=== PATIENT | male | born 1990 | race Caucasian/White ===

== ENCOUNTER 2017-02-04 18:23 | Emergency (ER) | payer OTHER ==
[2017-02-04 18:53] VITALS: BP 135/74; PULSE 73; RESP 18; TEMP 98.2
[2017-02-04] MEDS ORDERED: CIPROFLOXACIN 0.3% OPHTH SOLN 2.5 ML BTL BOTH EYES STA (19:04)
[2017-02-04] MEDS ORDERED: CLINDAMYCIN 150 MG/ML 4 ML VIAL IM STA ×2 (19:04→19:21)
--- NOTE | 2017-02-04 19:30 | ED ---
Eye Problem HPI - General Chief complaint: Eye Problems Stated complaint: rt eye problem Time Seen by Provider: 02/04/17 18:54 Source: patient, RN notes reviewed Mode of arrival: ambulatory Limitations: no limitations - History of Present Illness Initial comments: 26-year-old male presents emergency Department chief complaint of 2 days of right thigh pain. Patient reports that he initially noticed he had some swelling and irritation of the eye itself. He reports he woke up with a crusting and draining. Patient states he went to the [facility] breath and a centimeter concerning for preseptal cellulitis. Patient was given no antibiotics at that time. Patient denies any fevers or chills. Denies any pain with extraocular eye movements. Patient states that he has no ALLERGIES to antibiotics. Denies any difficulty with vision. - Related Data Home Medications Medication Instructions Recorded Confirmed FLUoxetine HCL [PROzac] 40 mg PO DAILY 10/23/14 10/23/14 Ibuprofen [Motrin] 600 mg PO Q8HR PRN 10/23/14 10/23/14 Previous Rx's Medication Instructions Recorded HYDROcodone/APAP 5-325MG [[place] 5] 1 each PO Q6HR PRN #2 tab 10/23/14 Ciprofloxacin Ophth Soln [Ciloxan 1 drops BOTH EYES Q4HR #1 bottle 02/04/17 0.3% Ophth Soln] Clindamycin [Cleocin] 300 mg PO TID 10 Days 02/04/17 Allergies Allergy/AdvReac Type Severity Reaction Status Date / Time divalproex sodium Allergy Unknown Verified 10/23/14 11:02 [From [facility]] Review of Systems ROS Statement: Those systems with pertinent positive or pertinent negative responses have been documented in the HPI. ROS Other: All systems not noted in ROS Statement are negative. Past Medical History Past Medical History: No Reported History History of Any Multi-Drug Resistant Organisms: None Reported Past Surgical History: No Surgical Hx Reported Past Psychological History: ADD/ADHD, Anxiety, Bipolar, Depression, PTSD Smoking Status: Current every day smoker Past Alcohol Use History: None Reported Past Drug Use History: None Reported General Exam - General Exam Comments Initial Comments: 26-year-old male. No acute distress. Limitations: no limitations General appearance: alert, in no apparent distress Head exam: Present: atraumatic, normocephalic, normal inspection Eye exam: Present: normal appearance, PERRL, EOMI, conjunctival injection ( right eye conjunctival injection), periorbital tenderness (right eye periorbital tenderness), other. Absent: scleral icterus, periorbital swelling ENT exam: Present: normal exam Neck exam: Present: normal inspection. Absent: tenderness, meningismus, lymphadenopathy Respiratory exam: Present: normal lung sounds bilaterally. Absent: respiratory distress, wheezes, rales, rhonchi, stridor Cardiovascular Exam: Present: regular rate, normal rhythm, normal heart sounds. Absent: systolic murmur, diastolic murmur, rubs, gallop, clicks GI/Abdominal exam: Present: soft, normal bowel sounds. Absent: distended, tenderness, guarding, rebound, rigid Extremities exam: Present: normal inspection, full ROM, normal capillary refill. Absent: tenderness, pedal edema, joint swelling, calf tenderness Back exam: Present: normal inspection Neurological exam: Present: alert, oriented X3, CN II-XII intact Psychiatric exam: Present: normal affect, normal mood Skin exam: Present: warm, dry, intact, normal color. Absent: rash Course Vital Signs 02/04/17 18:51 Temperature 98.2 F Pulse Rate 73 Respiratory 18 Rate Blood Pressure 135/74 O2 Sat by Pulse 98 Oximetry Medical Decision Making - Medical Decision Making 6-year-old male chief complaint of right eye pain and swelling for the past 2 days. Patient reports to use any form expressed concern for preseptal cellulitis. He does have some erythema and swelling underneath and around the right eye. No pain with extraocular eye movements. Patient's given IM clindamycin. Started on ciprofloxacin drops. Discussed the need take the medication as prescribed. Discussed taking Motrin Tylenol. Discussed that he needs return to emergency department if any worsening signs or symptoms occur. Patient understands treatment plan will comply. Disposition Clinical Impression: Periorbital cellulitis of right eye, Conjunctivitis, right eye Disposition: HOME SELF-CARE Condition: Good Instructions: Conjunctivitis (ED), Periorbital Cellulitis in Adults (ED) Additional Instructions: Is advised to take the antibiotics as directed. Do not miss a dose. Return to the emergency department if any alarming signs or symptoms occur. Prescriptions: Ciprofloxacin Ophth Soln [Ciloxan 0.3% Ophth Soln] 1 drops BOTH EYES Q4HR #1 bottle Clindamycin [Cleocin] 300 mg PO TID 10 Days Referrals: Jessica Jones MD [Primary Care Provider] - 1-2 days Time of Disposition: 19:27
== END 2017-02-04 19:50 | disposition home or self-care (01) ==
LOC: EC 18:23
DX: L03.213 Periorbital cellulitis (principal); H10.9 Unspecified conjunctivitis; F41.9 Anxiety disorder, unspecified; F43.10 Post-traumatic stress disorder, unspecified; F32.9 Major depressive disorder, single episode, unspecified; F17.200 Nicotine dependence, unspecified, uncomplicated; Z88.8 Allergy status to other drugs, medicaments and biological substances; Z79.899 Other long term (current) drug therapy
CPT/HCPCS: 96372; 99283

== ENCOUNTER 2018-07-20 14:39 | Emergency (ER) | payer OTHER ==
[2018-07-20 15:09] VITALS: RESP 18; TEMP 98.3
[2018-07-20] MEDS ORDERED: KETOROLAC 60 MG/2 ML VIAL IM STA (16:40)
--- NOTE | 2018-07-20 17:22 | CT ---
EXAMINATION TYPE: CT thor lumbar spine wo con DATE OF EXAM: 07/20/2018 COMPARISON: None HISTORY: Fall from porch, landing on mid back, more on left side. CT DLP: 1465.4 mGycm Automated exposure control for dose reduction was used. FINDINGS: Thoracic and lumbar vertebra have normal spacing and alignment. There is no evidence of a compression fracture. There is nondisplaced fracture left transverse process of L2. There is no thoracic or lumb ar paraspinal mass. There is no evidence of spinal stenosis. I see no focal bone destruction. Sacroil iac joints appear normal. IMPRESSION: NONDISPLACED FRACTURE LEFT TRANSVERSE PROCESS OF L2. NO EVIDENCE OF A COMPRESSION FRACTURE OF THE THO RACIC AND LUMBAR SPINE.
--- NOTE | 2018-07-20 17:37 | ED ---
Back Pain HPI - General Chief Complaint: Back Pain/Injury Stated Complaint: fall on ice, back pain Time Seen by Provider: 07/20/18 16:17 Source: patient Limitations: no limitations - History of Present Illness Initial Comments: 27-year-old female who denies past medical history presenting today for chief complaint of left-sided back pain. Patient states that he fell just prior to arrival. He states he went home to feed his cats when he slipped on ice and the porch falling onto left aspect of his back. Patient amidst too low back pain. Patient denies any injury to the chest, dyspnea, dyspnea on exertion. Patient states it is tender to palpation of the left side of the back. Patient denies abdominal pain, nausea, vomiting. Patient denies any head or neck injury. He denies any loss of consciousness. Patient denies any dizziness, headache, chest pain or palpitations prior to falling. He states he did fall because the ice. Patient denies any loss of bowel bladder control, urinary retention, loss sensation lower extremities, lower extremity muscle weakness, difficulty in breathing, denies any radiation of the pain to the lower extremities. He states pain is localized to the left side of the lumbar spine. Remaining review of systems negative, Patient denies any recent fever, chills , shortness of breath, chest pain, numbness or tingling, dysuria or hematuria, constipation or diarrhea, headaches or visual changes, or any other complaints. - Related Data Home Medications Medication Instructions Recorded Confirmed FLUoxetine HCL [PROzac] 40 mg PO DAILY 10/23/14 10/23/14 Ibuprofen [Motrin] 600 mg PO Q8HR PRN 10/23/14 10/23/14 Previous Rx's Medication Instructions Recorded HYDROcodone/APAP 5-325MG [[place] 5] 1 each PO Q6HR PRN #2 tab 10/23/14 Ciprofloxacin Ophth Soln [Ciloxan 1 drops BOTH EYES Q4HR #1 bottle 02/04/17 0.3% Ophth Soln] Clindamycin [Cleocin] 300 mg PO TID 10 Days capsule 02/04/17 Acetaminophen with Codeine 1 tab PO Q6H PRN 3 Days #12 tab 07/20/18 [Tylenol w/codeine #3] Allergies Allergy/AdvReac Type Severity Reaction Status Date / Time divalproex sodium Allergy Unknown Verified 07/20/18 15:04 [From Depakote] Review of Systems ROS Statement: Those systems with pertinent positive or pertinent negative responses have been documented in the HPI. ROS Other: All systems not noted in ROS Statement are negative. Past Medical History Past Medical History: No Reported History History of Any Multi-Drug Resistant Organisms: None Reported Past Surgical History: No Surgical Hx Reported Past Psychological History: ADD/ADHD, Anxiety, Bipolar, Depression, PTSD Smoking Status: Current every day smoker Past Alcohol Use History: None Reported Past Drug Use History: Marijuana General Exam - General Exam Comments Initial Comments: General: The patient is awake and alert, in no distress, and does not appear acutely ill. Eye: +3 mm pupils are equal, round and reactive to light, extra-ocular movements are intact. No nystagmus. There is normal conjunctiva bilaterally. No signs of icterus. Ears, nose, mouth and throat: There are moist mucous membranes and no oral lesions. Neck: The neck is supple, there is no tenderness or JVD. Cardiovascular: There is a regular rate and rhythm. No murmur, rub or gallop is appreciated. Respiratory: Lungs are clear to auscultation, respirations are non-labored, breath sounds are equal. No wheezes, stridor, rales, or rhonchi. Present in the lung peng, no guarding. No tenderness to patient of the ribs. Gastrointestinal: Soft, non-distended, non-tender abdomen without masses or organomegaly noted. There is no rebound or guarding present. No CVA tenderness. Bowel sounds are unremarkable. Musculoskeletal: Upon inspection of the lumbar spine there is ecchymosis paravertebral to the mid lumbar spine. There is midline and paravertebral tenderness to palpation of the lumbar spine. Normal ROM, no tenderness of the lower extremities. Negative straight leg raise bilaterally Strength 5/5 of the lower extremity is equal bilaterally. Sensation intact of the lower extremities equally bilaterally including the saddle region. DP pulses equal bilaterally 2+. Neurological: A&O x 3. CN II-XII intact, There are no obvious motor or sensory deficits. Coordination appears grossly intact. Speech is normal. Skin: Skin is warm and dry and no rashes or lesions are noted. Psychiatric: Cooperative, appropriate mood & affect, normal judgment. Limitations: no limitations Course Vital Signs 07/20/18 07/20/18 15:06 18:19 Temperature 98.3 F Pulse Rate 114 H 99 Respiratory 18 18 Rate Blood Pressure 142/93 126/78 O2 Sat by Pulse 99 99 Oximetry Medical Decision Making - Medical Decision Making 27-year-old male presented for follow-up. Given the extent of ecchymosis of the paravertebral tissue concern for possible fracture, CT obtained revealing a transverse process fracture of L2. No evidence of spinal cord compression, there is no radicular symptoms on examination or patient complaints. Patient neurovascularly intact. Patient has no complaints of abdominal pain. Patient given medication for pain. This time do feel patient is stable for discharge with outpatient orthopedic surgery follow-up. Patient is agreeable plan discharge denies question at this time. Patient appears comfortable, he states he is shocked there was a fracture. Administration of Tylenol 3 as well as risks involved tissues were discussed at length with patient who verbalized understanding. Patient discharged appearing well, i did discuss case with attending provider Dr. Monsalve prior to pt discharge. Disposition Clinical Impression: L2 vertebral fracture Narrative: L2 transverse process fracture Disposition: HOME SELF-CARE Condition: Good Instructions (If sedation given, give patient instructions): Acute Low Back Pain (ED), Back Pain (ED) Additional Instructions: Please use medication as discussed. Please follow-up with family doctor in the next 2 days. Please follow-up with orthopedic surgery in next week. Please return to emergency room if the symptoms increase or worsen or for any other concerns. Prescriptions: Acetaminophen with Codeine [Tylenol w/codeine #3] 1 tab PO Q6H PRN 3 Days #12 tab PRN Reason: Severe Pain Is patient prescribed a controlled substance at d/c from ED?: Yes When asked, does pt state using other controlled substances?: No If prescribed controlled substance>3 days was MAPS reviewed?: Prescribed <3 Days If opioid is for acute pain is fill amount 7 days or less?: Yes If Rx opioid, was Start Talking consent form obtained?: Yes Referrals: None,Stated [Primary Care Provider] - 1-2 days [facility] [NON[facility]] - 1-2 days Arsenio Shaw DO [Doctor of Osteopathic Medicine] - 1-2 days Time of Disposition: 17:36
[2018-07-20] MEDS ORDERED: ACET/COD 300 MG/30 MG STARTER PACK 6 TAB BTL PO STA (18:15)
[2018-07-20 18:20] VITALS: BP 126/78; PULSE 99
== END 2018-07-20 18:20 | disposition home or self-care (01) ==
LOC: EC 14:39
DX: S32.029A Unspecified fracture of second lumbar vertebra, initial encounter for closed fracture (principal); F32.9 Major depressive disorder, single episode, unspecified; F43.10 Post-traumatic stress disorder, unspecified; F41.9 Anxiety disorder, unspecified; F17.200 Nicotine dependence, unspecified, uncomplicated; Z79.899 Other long term (current) drug therapy; Z88.8 Allergy status to other drugs, medicaments and biological substances; W00.0XXA Fall on same level due to ice and snow, initial encounter
CPT/HCPCS: 72128; 72131; 99283; 96372; J1885

== ENCOUNTER 2019-03-09 18:42 | Emergency (ER) | payer OTHER ==
[2019-03-09 19:42] VITALS: RESP 18; TEMP 98.2
[2019-03-09 21:17] VITALS: BP 137/73; PULSE 73
[2019-03-09] MEDS ORDERED: ONDANSETRON 4 MG/2 ML VIAL IVP STA (21:28)
[2019-03-09] MEDS ORDERED: SODIUM CHLORIDE 0.9% 2,000 ML IV STA (21:28)
[2019-03-09] MEDS ORDERED: ONDANSETRON 4 MG ODT STARTER PACK 2 TAB BTL PO STA (21:40)
[2019-03-09] MEDS ORDERED: AZITHROMYCIN 500 MG TAB PO STA (21:40)
--- NOTE | 2019-03-09 21:45 | ED ---
General Adult HPI - General Chief complaint: Abdominal Pain Stated complaint: vomiting x 3 days Time Seen by Provider: 03/09/19 21:28 Source: patient Mode of arrival: ambulatory Limitations: no limitations - History of Present Illness Initial comments: Chago is a pleasant 28-year-old woman who presents to the ER today for evaluation of URI. Patient reports he's had runny stuffy nose and generalized malaise. He reports she's had a lot of nasal drainage which is constant have multiple episodes of nonbloody nonbilious emesis. Patient states that he came to the ER today because he called in sick to work and needs a work note. Everything seems to be manageable he thinks he needs an antibiotic for his upper respiratory infection but otherwise is feeling fine. - Related Data Home Medications Medication Instructions Recorded Confirmed FLUoxetine HCL [PROzac] 40 mg PO DAILY 10/23/14 10/23/14 Ibuprofen [Motrin] 600 mg PO Q8HR PRN 10/23/14 10/23/14 Previous Rx's Medication Instructions Recorded HYDROcodone/APAP 5-325MG [[place] 5] 1 each PO Q6HR PRN #2 tab 10/23/14 Ciprofloxacin Ophth Soln [Ciloxan 1 drops BOTH EYES Q4HR #1 bottle 02/04/17 0.3% Ophth Soln] Clindamycin [Cleocin] 300 mg PO TID 10 Days capsule 02/04/17 Acetaminophen with Codeine 1 tab PO Q6H PRN 3 Days #12 tab 07/20/18 [Tylenol w/codeine #3] Azithromycin 250 mg PO DAILY 4 Days #4 tab 03/09/19 Allergies Allergy/AdvReac Type Severity Reaction Status Date / Time divalproex sodium Allergy Unknown Verified 03/09/19 19:42 [From Depakote] Review of Systems ROS Statement: Those systems with pertinent positive or pertinent negative responses have been documented in the HPI. ROS Other: All systems not noted in ROS Statement are negative. Past Medical History Past Medical History: No Reported History History of Any Multi-Drug Resistant Organisms: None Reported Past Surgical History: No Surgical Hx Reported Past Psychological History: ADD/ADHD, Anxiety, Bipolar, Depression, PTSD Smoking Status: Current every day smoker Past Alcohol Use History: None Reported Past Drug Use History: Marijuana General Exam - General Exam Comments Initial Comments: Physical Exam GENERAL: Patient is well-developed and well-nourished. Patient is nontoxic and well- hydrated and is in no distress. HENT: Normocephalic, Atraumatic. EYES: PERRL, EOMI PULMONARY: Unlabored respirations. No audible rales rhonchi or wheezing was noted. CARDIOVASCULAR: There is a regular rate and rhythm without any murmurs gallops or rubs. ABDOMEN: Soft and nontender with normal bowel sounds. SKIN: Skin is clear with no lesions or rashes and otherwise unremarkable. : Deferred NEUROLOGIC: Patient is alert and oriented x3. Moving all extremities spontaneously MUSCULOSKELETAL: Normal extremities with adequate strength and full range of motion. No lower extremity swelling or edema. No calf tenderness. PSYCHIATRIC: Normal psychiatric evaluation. Limitations: no limitations Course Vital Signs 03/09/19 03/09/19 19:40 20:42 Temperature 98.2 F Pulse Rate 72 73 Respiratory 18 18 Rate Blood Pressure 130/81 137/73 O2 Sat by Pulse 100 98 Oximetry Medical Decision Making - Medical Decision Making Patient was seen and evaluated history is obtained from patient patient is well- appearing normal vital signs. Patient feels that he doesn't feel he needs to the emergency department and avoid blood work and IV fluids is tolerating by mouth he is feeling well he simply needs a work note because he called in sick. Treated for URI with azithromycin patient is having copious nasal drainage. Disposition Clinical Impression: URI (upper respiratory infection) Disposition: HOME SELF-CARE Condition: Stable Prescriptions: Azithromycin 250 mg PO DAILY 4 Days #4 tab Is patient prescribed a controlled substance at d/c from ED?: No Referrals: None,Stated [Primary Care Provider] - 1-2 days
== END 2019-03-09 22:12 | disposition home or self-care (01) ==
LOC: EC 18:42
DX: J06.9 Acute upper respiratory infection, unspecified (principal); R11.10 Vomiting, unspecified; R10.9 Unspecified abdominal pain; F90.9 Attention-deficit hyperactivity disorder, unspecified type; F31.9 Bipolar disorder, unspecified; F41.9 Anxiety disorder, unspecified; F17.200 Nicotine dependence, unspecified, uncomplicated; Z88.8 Allergy status to other drugs, medicaments and biological substances; Z79.899 Other long term (current) drug therapy; Z53.9 Procedure and treatment not carried out, unspecified reason
CPT/HCPCS: 99283; S0119

== ENCOUNTER → 2019-04-11 | Outpatient (CLI) | payer OTHER ==
--- NOTE | 2019-04-11 15:18 | XR ---
EXAMINATION TYPE: XR lumbosacral spine min 4V DATE OF EXAM: 04/11/2019 COMPARISON: NONE HISTORY: Low back pain since fall on 07/20/2018. History of fracture of L2 transverse process fracture at that time TECHNIQUE: Frontal and lateral views of the lumbar spine were obtained as well as bilateral oblique v iews. FINDINGS: There are healing fracture deformities of the second and third left transverse processes wi th some callus formation. These are nondisplaced. Remaining transverse processes and pedicles are unr emarkable. There are 5 lumbar type vertebral bodies present. Sacroiliac joint spaces are symmetric. O blique images are unremarkable. No evidence of vertebral body height loss or malalignment on the late ral view. IMPRESSION: Healing nondisplaced left L2 and L3 transverse process fractures. No vertebral body heigh t loss or malalignment of the lumbar spine.
--- NOTE | 2019-04-11 15:19 | XR ---
EXAMINATION TYPE: XR thoracic spine 2V DATE OF EXAM: 04/11/2019 CLINICAL HISTORY: Fall and 07/20/2018 with known fracture of L2 TECHNIQUE: Frontal, lateral, and swimmer's view of thoracic spine are obtained. COMPARISON: CT dated 07/20/2018 FINDINGS: Thoracic spine show satisfactory alignment without evidence of acute fracture or malalignme nt. Vertebral body heights and disc space heights are preserved. Visualized ribs are unremarkable. IMPRESSION: No acute fracture or malalignment is seen in the thoracic spine.
== END | disposition home or self-care (01) ==
LOC: RADXRMAIN 14:36
PROVIDERS: ATTEND Family Medicine
DX: S32.029A Unspecified fracture of second lumbar vertebra, initial encounter for closed fracture (principal); S32.039A Unspecified fracture of third lumbar vertebra, initial encounter for closed fracture; M54.5 Low back pain; F41.8 Other specified anxiety disorders
CPT/HCPCS: 72070; 72110

== ENCOUNTER 2019-11-30 00:45 | Emergency (ER) | payer OTHER ==
[2019-11-30 00:54] VITALS: BP 146/89; PULSE 104; RESP 18; TEMP 98.1
[2019-11-30] MEDS ORDERED: KETOROLAC 30 MG/ML 1 ML VIAL IM STA (01:04)
--- NOTE | 2019-11-30 01:07 | ED ---
General Adult HPI - General Chief complaint: Back Pain/Injury Stated complaint: Back Pain Time Seen by Provider: 11/30/19 00:57 Source: patient, RN notes reviewed Mode of arrival: ambulatory Limitations: no limitations - History of Present Illness Initial comments: 29-year-old male with a past medical history of asthma presents to the emergency department for a chief complaint of back pain. Patient states yesterday he was working on a roof. States he was on a ladder when his foot slipped and he torqued his back. Patient did not fall off the ladder. States that since that time he has had left-sided back pain. Patient states he needs a note for work for 2 days. He can rest. Patient denies bladder or bowel changes, numbness or tingling in the groin or buttock. He denies weakness of the lower extremities. He denies any fevers or chills. No history of IV drug abuse. Patient states movement worsens his pain.Patient has no other complaints at this time including shortness of breath, chest pain, abdominal pain, nausea or vomiting, headache, or visual changes. - Related Data Home Medications Medication Instructions Recorded Confirmed FLUoxetine HCL [PROzac] 40 mg PO DAILY 10/23/14 10/23/14 Ibuprofen [Motrin] 600 mg PO Q8HR PRN 10/23/14 10/23/14 Previous Rx's Medication Instructions Recorded HYDROcodone/APAP 5-325MG [[place] 5] 1 each PO Q6HR PRN #2 tab 10/23/14 Ciprofloxacin Ophth Soln [Ciloxan 1 drops BOTH EYES Q4HR #1 bottle 02/04/17 0.3% Ophth Soln] Clindamycin [Cleocin] 300 mg PO TID 10 Days capsule 02/04/17 Acetaminophen with Codeine 1 tab PO Q6H PRN 3 Days #12 tab 07/20/18 [Tylenol w/codeine #3] Azithromycin 250 mg PO DAILY 4 Days #4 tab 03/09/19 Allergies Allergy/AdvReac Type Severity Reaction Status Date / Time divalproex sodium Allergy Unknown Verified 11/30/19 00:54 [facility] Review of Systems ROS Statement: Those systems with pertinent positive or pertinent negative responses have been documented in the HPI. ROS Other: All systems not noted in ROS Statement are negative. Past Medical History Past Medical History: No Reported History, Asthma History of Any Multi-Drug Resistant Organisms: None Reported Past Surgical History: No Surgical Hx Reported Past Psychological History: ADD/ADHD, Anxiety, Bipolar, Depression, PTSD Smoking Status: Current every day smoker Past Alcohol Use History: None Reported Past Drug Use History: None Reported General Exam Limitations: no limitations General appearance: alert, in no apparent distress Head exam: Present: atraumatic, normocephalic, normal inspection Eye exam: Present: normal appearance, PERRL, EOMI. Absent: scleral icterus, conjunctival injection, periorbital swelling ENT exam: Present: normal exam, mucous membranes moist Neck exam: Present: normal inspection, full ROM. Absent: tenderness, men ingismus, lymphadenopathy Respiratory exam: Present: normal lung sounds bilaterally. Absent: respiratory distress, wheezes, rales, rhonchi, stridor Cardiovascular Exam: Present: regular rate, normal rhythm, normal heart sounds. Absent: systolic murmur, diastolic murmur, rubs, gallop, clicks GI/Abdominal exam: Present: soft, normal bowel sounds. Absent: distended, tenderness, guarding, rebound, rigid Back exam: Present: paraspinal tenderness (Left-sided paraspinal lumbar tenderness. No lumbar spine tenderness.). Absent: CVA tenderness (R), CVA tenderness (L), vertebral tenderness Neurological exam: Present: alert Course Vital Signs 11/30/19 00:49 Temperature 98.1 F Pulse Rate 104 H Respiratory 18 Rate Blood Pressure 146/89 O2 Sat by Pulse 98 Oximetry Medical Decision Making - Medical Decision Making Patient presents for mechanical back pain after an injury yesterday. No red flag symptoms. Patient ambulated into the emergency room. Neurovascular status intact in the lower extremities. Patient has left-sided paraspinal lumbar tenderness. Patient was given IM Toradol. He is requesting work note. He will follow up with primary care in 1-2 days. He'll return for any worsening symptoms. Disposition Clinical Impression: Mechanical back pain Disposition: HOME SELF-CARE Condition: Good Instructions (If sedation given, give patient instructions): Acute Low Back Pain (ED) Additional Instructions: Please take Motrin and Tylenol for pain. Please follow-up with primary care in 1-2 days. If you have any worsening symptoms such as bladder or bowel changes, numbness or tingling of the lower extremities, weakness of the lower extremities, or fevers return to the emergency room. Is patient prescribed a controlled substance at d/c from ED?: No Referrals: Jessica Jones MD [Primary Care Provider] - 1-2 days Time of Disposition: 01:06
== END 2019-11-30 01:19 | disposition home or self-care (01) ==
LOC: EC 00:45
DX: M54.9 Dorsalgia, unspecified (principal); F41.9 Anxiety disorder, unspecified; F32.9 Major depressive disorder, single episode, unspecified; F43.10 Post-traumatic stress disorder, unspecified; F17.200 Nicotine dependence, unspecified, uncomplicated; Z79.899 Other long term (current) drug therapy; Z88.8 Allergy status to other drugs, medicaments and biological substances
CPT/HCPCS: 99283; 96372; J1885